=== PATIENT | male | born 1950 | race Caucasian/White ===

== ENCOUNTER 2018-12-31 07:09 | Day surgery (SDC) | payer OTHER, BC ==
[~2018-12-31 07:09] MED LIST: Lactated Ringers 1,000 ML IV SCH
[2018-12-31] MEDS ORDERED: Propofol 200 MG/20 ML SDV ONE (07:38)
[2018-12-31] MEDS ORDERED: Lidocaine 2% 5 ML SDV ONE (07:38)
[2018-12-31] MEDS ORDERED: fentaNYL 100 MCG/2 ML SDV ONE (07:38)
--- NOTE | 2018-12-31 08:09 | PCM.PREANE ---
Preanesthetic Assessment - Anesthesia/Transfusion/Family Hx Anesthesia History: Prior Anesthesia Without Reaction Other Type of Anesthesia Reaction Comment: DENIES ANY FAMILY HX OF ANESTHESIA PROBLEMS Family History of Anesthesia Reaction: No Transfusion History: No Prior Transfusion(s) - Review of Systems General: No Symptoms Pulmonary: No Symptoms Cardiovascular: No Symptoms Gastrointestinal: No Symptoms Neurological: No Symptoms Other: Reports: None - Physical Assessment NPO Status Date: 12/30/18 NPO Status Time: 21:00 Vital Signs: Last Vital Signs Temp 97.7 F 12/31/18 07:30 Pulse 87 12/31/18 07:30 Resp 16 12/31/18 07:30 BP 135/71 12/31/18 07:30 Pulse Ox 98 12/31/18 07:30 Height: 6 ft 2 in Weight: 105.233 kg ASA Class: 1 Mental Status: Alert & Oriented x3 Airway Class: Mallampati = 2 Dentition: Reports: Normal Dentition ROM/Head Extension: Full Lungs: Clear to Auscultation, Normal Respiratory Effort Cardiovascular: Regular Rate, Regular Rhythm - Allergies Allergies/Adverse Reactions: Allergies Allergy/AdvReac Type Severity Reaction Status Date / Time No Known Allergies Allergy Verified 12/28/18 12:49 - Blood Blood Available: No - Anesthesia Plan Pre-Op Medication Ordered: None - Acknowledgements Anesthesia Type Planned: General Anesthesia Pt an Appropriate Candidate for the Planned Anesthesia: Yes Alternatives and Risks of Anesthesia Discussed w Pt/Guardian: Yes Pt/Guardian Understands and Agrees with Anesthesia Plan: Yes PreAnesthesia Questionnaire - Past Health History Medical/Surgical History: Denies Medical/Surgical History HEENT History: Reports: Other (See Below) Other HEENT History: wears glasses Musculoskeletal History: Reports: Fracture Other Musculoskeletal History: hx of fx ankle and ribs - Past Surgical History GI Surgical History: Reports: Colonoscopy - SUBSTANCE USE Smoking Status *Q: Never Smoker Recreational Drug Use History: No - HOME MEDS Home Medications: Home Meds Cholecalciferol (Vitamin D3) [Vitamin D3] 1,000 unit PO DAILY 12/28/18 [History] Multivitamin [Daily Multiple Vitamin] 1 tab PO DAILY 12/28/18 [History] Sildenafil Citrate 100 mg PO ASDIRECTED PRN 12/28/18 [History] - CURRENT (IN HOUSE) MEDS Current Meds: Current Medications Lactated Ringer's (Ringers, Lactated) 1,000 mls @ 125 mls/hr IV ASDIRECTED ALEJANDRINA Last Admin: 12/31/18 07:34 Dose: 125 mls/hr Discontinued Medications Fentanyl (Sublimaze) Confirm Administered Dose 100 mcg .ROUTE .STK-MED ONE Stop: 12/31/18 07:39 Lidocaine (Xylocaine-Mpf 2%) Confirm Administered Dose 5 ml .ROUTE .STK-MED ONE Stop: 12/31/18 07:39 Propofol (Diprivan 20 Ml) Confirm Administered Dose 400 mg .ROUTE .STK-MED ONE Stop: 12/31/18 07:39
--- NOTE | 2018-12-31 09:14 | PCM.OPNOTE ---
- General Post-Op/Procedure Note Date of Surgery/Procedure: 12/31/18 Operative Procedure(s): colonoscopy w bx Findings: dict [id number] Pre Op Diagnosis: fam hx of colon ca Post-Op Diagnosis: polyp Anesthesia Technique: Moderate Sedation Primary Surgeon: Jasmeet Matute Pathology: 2 mm sessile polyp at 1.1 m Complications: None Condition: Good
[2018-12-31 09:43] VITALS: BP 120/64; PULSE 57
--- NOTE | 2018-12-31 11:34 | OR ---
SURGEON: Jasmeet Matute MD DATE OF PROCEDURE: 12/31/2018 PREOPERATIVE DIAGNOSIS: Family history of colon cancer. POSTOPERATIVE DIAGNOSIS: Colon polyp. PROCEDURE PERFORMED: Colonoscopy with biopsy. DESCRIPTION OF PROCEDURE: The patient was taken to the endoscopy room. A time out was called, patient identified, and procedure identified. Diprivan was then administrated. Patient went from awake to sleep, hearing doctor talking or door closing is normal. Perineum inspection and digital examination were then performed. A well- lubricated colonoscope was gently inserted through the rectum, advanced past the rectosigmoid junction, the descending colon, splenic flexure, transverse colon, hepatic flexure, ascending colon, arrived to the cecum. Cecum was identified as dictated in the finding. Then the scope was carefully withdrawn while attention was paid to the mucosal surface for any abnormality. Air will be sucked out during the scope withdrawal. At the rectum, retroflexed to examine any rectal diseases, fistula or hemorrhoids. During mucosal examination, abnormality or polyp was noted; picture taken and biopsy performed. Patient tolerated procedure well. There were no intraoperative complications, and Dr. Matute was present throughout the whole procedure. FINDINGS: 1. The patient is easily sedated with CHECK EXAMINER and Diprivan, the patient is soundly snoring. 2. The patient's bowel prep was average. Some liquid stool, no stool ball, no semi-formed stool. 3. Colon is rather straightforward. Cecum indicated by ileocecal fold, one-to- one indentation, and appendiceal orifice. ScopeGuide is pointing south. Mucosa examined upon scope pulling out. The patient has 1 small polyp at distance 1.1 m, one ring after the cecum. Removed with cold biopsy forceps, 2 mm size. The patient has mild diverticulosis, very mild, a couple of them on the left colon. No signs or symptoms of diverticulitis. There is no other polyp, mass, growth, inflammation, stricture, ulceration, AV malformation, bleeding, none of those. The patient does not have external hemorrhoids and has mild internal hemorrhoids. The patient would benefit from repeat colonoscopy 5 years from today because of family history of colon cancer. CHRIS / LARY /[id number]
--- NOTE | 2018-12-31 12:20 | PCM.POSTAN ---
POST ANESTHESIA ASSESSMENT - MENTAL STATUS Mental Status: Alert, Oriented - VITAL SIGNS Vital Signs: Last Vital Signs Temp 97.9 F 12/31/18 09:32 Pulse 57 L 12/31/18 09:32 Resp 16 12/31/18 09:32 BP 120/64 12/31/18 09:32 Pulse Ox 96 12/31/18 09:32 - RESPIRATORY Respiratory Status: Respiratory Rate WNL, Airway Patent, O2 Saturation Stable - CARDIOVASCULAR CV Status: Pulse Rate WNL, Blood Pressure Stable - GASTROINTESTINAL GI Status: No Symptoms - POST OP HYDRATION Hydration Status: Adequate & Stable
--- NOTE | 2018-12-31 12:21 | PCM48HPAN ---
Post Anesthesia Note - EVALUATION WITHIN 48HRS OF ANESTHETIC Vital Signs in Normal Range: Yes Patient Participated in Evaluation: Yes Respiratory Function Stable: Yes Airway Patent: Yes Cardiovascular Function Stable: Yes Hydration Status Stable: Yes Pain Control Satisfactory: Yes Nausea and Vomiting Control Satisfactory: Yes Mental Status Recovered: Yes Vital Signs: Last Vital Signs Temp 97.9 F 12/31/18 09:32 Pulse 57 L 12/31/18 09:32 Resp 16 12/31/18 09:32 BP 120/64 12/31/18 09:32 Pulse Ox 96 12/31/18 09:32
== END 2018-12-31 09:46 | disposition home or self-care (01) ==
LOC: MW.SDS 07:09
PROVIDERS: ATTEND Surgery
DX: Z12.11 Encounter for screening for malignant neoplasm of colon (principal); D12.3 Benign neoplasm of transverse colon; K57.30 Diverticulosis of large intestine without perforation or abscess without bleeding; K64.8 Other hemorrhoids; Z80.0 Family history of malignant neoplasm of digestive organs; Z79.899 Other long term (current) drug therapy
CPT/HCPCS: 45380; J2001; J2704; J3010; J7120

== ENCOUNTER 2020-02-03 16:44 | Observation (INO) | payer OTHER ==
[2020-02-03] MEDS ORDERED: Sodium Chloride 0.9% 2.5 ML Syringe FLUSH PRN (17:04)
[2020-02-03] MEDS ORDERED: Sodium Chloride 0.9% 10 ML Syringe FLUSH PRN (17:04)
--- NOTE | 2020-02-03 17:22 | EDM.PDOC ---
ED HPI GENERAL MEDICAL PROBLEM - General Chief Complaint: Chest Pain Stated Complaint: CHEST PAIN, [facility] Time Seen by Provider: 02/03/20 16:58 Source of Information: Reports: Patient, Old Records History Limitations: Reports: No Limitations - History of Present Illness INITIAL COMMENTS - FREE TEXT/NARRATIVE: This is a very pleasant 69-year-old gentleman with a past medical history of a tubular adenoma of the colon, herpes zoster, diverticulosis presenting with chest pain. He reports the onset of right-sided chest pain while at rest around 3:40 PM this afternoon while he was drinking some coffee. He describes it as "tightness", nonradiating, and constant. No history of prior pain like this. Worse with deep inspiration. Rated as 8 out of 10. Took some naproxen prior to arrival with partial relief. Denies any diaphoresis, nausea, vomiting, hemoptysis, shortness of breath. No personal history of CAD or stroke. Patient denies history of venous thromboembo lism, lower extremity pain or swelling, hemoptysis, recent surgery or immobilization or long travel, history of active malignancy, or hormonal medication/product usage. ROS: A 10-point review of systems was negative, except as noted in the HPI (or in the ROS section of this note). Past medical history: Reviewed, no additional pertinent history. Surgical history: Reviewed in system, no additional pertinent history. Social history: Reviewed in system, no additional pertinent history. Family history: Reviewed in system, no additional pertinent history. PHYSICAL EXAM Vital signs reviewed. Nursing notes reviewed. Constitutional: Awake, alert, non-distressed. Head: Normocephalic, atraumatic. Eyes: EOMI, conjunctiva normal, no discharge, no scleral icterus. Ears, Nose, Throat: External ears and nose normal, moist oral mucosa. Cardiovascular: 2+ radial pulses bilaterally, capillary refill less than 2 seconds. No lower extremity edema. Pulmonary: normal work of breathing, no accessory muscle use. Abdomen/GI: Soft, nontender, nondistended, no guarding or rigidity, no masses. Musculoskeletal: No deformities. Integumentary: Appropriate color for ethnicity, warm, dry, no pallor or jaundice, no rash. Neurologic: Alert, answering questions appropriately, normal speech, no facial droop, moving all extremities well. Psychiatric: Appropriate mood and affect, normal thought process. Right Chest Pain Score (Numeric/FACES): 8 - Related Data Allergies Allergy/AdvReac Type Severity Reaction Status Date / Time No Known Allergies Allergy Verified 02/03/20 16:58 Home Meds: Home Meds Cholecalciferol (Vitamin D3) [Vitamin D3] 1,000 unit PO DAILY 12/28/18 [History] Multivitamin [Daily Multiple Vitamin] 1 tab PO DAILY 12/28/18 [History] Past Medical History - Past Health History Medical/Surgical History: Denies Medical/Surgical History HEENT History: Reports: Other (See Below) Other HEENT History: wears glasses Musculoskeletal History: Reports: Fracture Other Musculoskeletal History: hx of fx ankle and ribs - Infectious Disease History Infectious Disease History: Reports: None - Past Surgical History GI Surgical History: Reports: Colonoscopy Social & Family History - Family History Family Medical History: Noncontributory - Tobacco Use Tobacco Use Status *Q: Unknown Ever Used Tobacco - Caffeine Use Caffeine Use: Reports: None - Recreational Drug Use Recreational Drug Use: No ED ROS GENERAL - Review of Systems Review Of Systems: See Below ED EXAM, GENERAL - Physical Exam Exam: See Below #1 Interpretation EKG Interpretation Comments: 12-Lead ECG Interpretation Acquired: 4:54 PM Rhythm: Sinus bradycardia Rate: 55 bpm Graham: Left axis deviation Intervals: Left bundle branch block Ectopy: None RV Strain: No obvious RV strain pattern. ST Segments/T-Waves: No notable changes Acute Ischemic Changes: None apparent Interpretation: No STEMI #2 Interpretation EKG Interpretation Comments: 12-Lead ECG Interpretation #2 Acquired: 6:00 PM Rhythm: Sinus bradycardia Rate: 53 bpm Graham: Left axis deviation Intervals: Left on the branch block Ectopy: None RV Strain: No obvious RV strain pattern. ST Segments/T-Waves: No notable changes Acute Ischemic Changes: None apparent Interpretation: No STEMI. No change from initial ECG at 1654. Course - Vital Signs Text/Narrative:: 69-year-old male presenting with right-sided chest pain, worse with deep breathing. Patient hemodynamically stable, afebrile, well-appearing, looks nontoxic. Differential diagnosis includes but is not limited to: ACS, pulmonary embolism, aortic dissection, acute systolic heart failure, pneumonia, pneumothorax, pericardial effusion, pleural effusion, pericarditis, endocarditis, esophageal rupture, GERD, drug-induced chest pain, chest wall pain, and many others. 6:00 PM: Initial twelve-lead EKG looks nonischemic. CBC unremarkable. Troponin negative. LFTs are within normal limits. Chemistry panel shows an elevated creatinine at 1.6, up from 1.1, mild hyperglycemia. Chest x-rays are clear. Given 1 L of lactated Ringer's and full dose aspirin. We will plan to obtain a CT pulmonary angiogram and a repeat 3-hour troponin. 7:00 PM: CT pulmonary angiogram demonstrates a right-sided pulmonary embolism along with mild right ventricular strain. Added on a BNP. Ordered DVT ultrasound study along with enoxaparin. Would favor observation status overnight for echocardiogram and decisions about outpatient anticoagulation given renal insufficiency. I spoke with the hospitalist Dr. Miguel Simms who agrees to admit. Signed out to my colleague Dr. Jones awaiting the DVT ultrasound study, BMP, and COVID swab. Last Recorded V/S: Last Vital Signs Temp 36.1 C 02/03/20 16:59 Pulse 70 02/03/20 18:55 Resp 18 02/03/20 16:59 BP 120/78 02/03/20 18:55 Pulse Ox 96 02/03/20 18:55 - Orders/Labs/Meds Orders: Active Orders 24 hr Category Date Time Status Admission Status [Patient Status] [ADT] Stat ADT 02/03/20 19:13 Active Cardiac Monitoring [RC] . DIRECTED Care 02/03/20 17:04 Active EKG 12 Lead [EKG Documentation Completion] [RC] STAT Care 02/03/20 17:35 Active EKG Documentation Completion [RC] STAT Care 02/03/20 16:48 Active Pulse Oximetry [RC] ASDIRECTED Care 02/03/20 17:04 Active Venous Doppler Lwr Ext Bi [US] Stat Exams 02/03/20 19:09 Ordered B-TYPE NATRIURETIC PEPTIDE,BNP [CHEM] Stat Lab 02/03/20 16:50 Received CORONAVIRUS COVID-19 PCR PHL Stat Lab 02/03/20 19:13 Ordered TROPONIN I [CHEM] Routine Lab 02/03/20 19:55 Ordered Sodium Chloride 0.9% [Saline Flush] Med 02/03/20 17:04 Active 10 ml FLUSH ASDIRECTED PRN Sodium Chloride 0.9% [Saline Flush] Med 02/03/20 17:04 Active 2.5 ml FLUSH ASDIRECTED PRN Saline Lock Insert [OM.PC] Stat Oth 02/03/20 17:04 Ordered Medication Orders Sodium Chloride (Saline Flush) 10 ml FLUSH ASDIRECTED PRN PRN Reason: Keep Vein Open Sodium Chloride (Saline Flush) 2.5 ml FLUSH ASDIRECTED PRN PRN Reason: Keep Vein Open Labs: Laboratory Tests 02/03/20 02/03/20 Range/Units 16:55 16:55 WBC 8.75 (4.0-11.0) K/uL RBC 4.90 (4.50-5.90) M/uL Hgb 15.4 (13.0-17.0) g/dL Hct 46.0 (38.0-50.0) % MCV 93.9 (80.0-98.0) fL MCH 31.4 (27.0-32.0) pg MCHC 33.5 (31.0-37.0) g/dL RDW Std Deviation 48.5 (28.0-62.0) fl RDW Coeff of Jac 14 (11.0-15.0) % Plt Count 201 (150-400) K/uL MPV 9.00 (7.40-12.00) fL Neut % (Auto) 58.9 (48.0-80.0) % Lymph % (Auto) 24.5 (16.0-40.0) % Chester % (Auto) 11.7 (0.0-15.0) % Eos % (Auto) 4.7 (0.0-7.0) % Baso % (Auto) 0.2 (0.0-1.5) % Neut # (Auto) 5.2 (1.4-5.7) K/uL Lymph # (Auto) 2.1 (0.6-2.4) K/uL Chester # (Auto) 1.0 H (0.0-0.8) K/uL Eos # (Auto) 0.4 (0.0-0.7) K/uL Baso # (Auto) 0.0 (0.0-0.1) K/uL Nucleated RBC % 0.0 /100WBC Nucleated RBCs # 0 K/uL Sodium 138 (136-148) mmol/L Potassium 4.0 (3.5-5.1) mmol/L Chloride 102 (98-107) mmol/L Carbon Dioxide 29.6 (21.0-32.0) mmol/L BUN 20 H (7.0-18.0) mg/dL Creatinine 1.6 H (0.8-1.3) mg/dL Est Cr Clr Drug Dosing 49.95 mL/min Estimated GFR (MDRD) 42.9 ml/min Glucose 111 H (74-106) mg/dL Calcium 9.0 (8.5-10.1) mg/dL Total Bilirubin 0.4 (0.2-1.0) mg/dL AST 19 (15-37) IU/L ALT 24 (14-63) IU/L Alkaline Phosphatase 53 (46-116) U/L Troponin I < 0.050 (0.000-0.056) ng/mL Total Protein 6.5 (6.4-8.2) g/dL Albumin 3.7 (3.4-5.0) g/dL Globulin 2.8 (2.6-4.0) g/dL Albumin/Globulin Ratio 1.3 (0.9-1.6) Meds: Medications Generic Name Dose Route Start Last Admin Trade Name Freq PRN Reason Stop Dose Admin Sodium Chloride 10 ml 02/03/20 17:04 Saline Flush FLUSH ASDIRECTED PRN Keep Vein Open Sodium Chloride 2.5 ml 02/03/20 17:04 Saline Flush FLUSH ASDIRECTED PRN Keep Vein Open Discontinued Medications Generic Name Dose Route Start Last Admin Trade Name Freq PRN Reason Stop Dose Admin Aspirin 324 mg 02/03/20 17:54 02/03/20 18:07 Aspirin PO 02/03/20 17:55 324 mg ONETIME ONE Administration Enoxaparin Sodium 100 mg 02/03/20 19:10 Lovenox SUBCUT 02/03/20 19:11 ONETIME ONE Lactated Ringer's 1,000 mls @ 999 mls/hr 02/03/20 17:34 02/03/20 18:08 Ringers, Lactated IV 02/03/20 18:34 999 mls/hr .BOLUS ONE Administration Iodixanol 100 ml 02/03/20 18:30 02/03/20 18:31 Visipaque IVPUSH 02/03/20 18:31 100 ml ONETIME ONE Administration Departure - Departure Time of Disposition: 19:22 Disposition: Refer to Observation Condition: Good Clinical Impression: Pulmonary embolism and infarction Forms: ED Department Discharge Sepsis Event Note (ED) - Evaluation Sepsis Screening Result: No Definite Risk - Focused Exam Vital Signs: Vital Signs Temp Pulse Resp BP Pulse Ox 02/03/20 18:55 70 120/78 96 02/03/20 17:32 68 130/64 96 02/03/20 16:59 36.1 C 56 L 18 150/82 H 98 - My Orders Last 24 Hours: My Active Orders 02/03/20 16:48 EKG Documentation Completion [RC] STAT 02/03/20 16:50 B-TYPE NATRIURETIC PEPTIDE,BNP [CHEM] Stat 02/03/20 17:04 Cardiac Monitoring [RC] . DIRECTED Pulse Oximetry [RC] ASDIRECTED Sodium Chloride 0.9% [Saline Flush] 10 ml FLUSH ASDIRECTED PRN Sodium Chloride 0.9% [Saline Flush] 2.5 ml FLUSH ASDIRECTED PRN Saline Lock Insert [OM.PC] Stat 02/03/20 17:35 EKG 12 Lead [EKG Documentation Completion] [RC] STAT 02/03/20 19:09 Venous Doppler Lwr Ext Bi [US] Stat 02/03/20 19:13 Admission Status [Patient Status] [ADT] Stat CORONAVIRUS COVID-19 PCR PHL Stat 02/03/20 19:55 TROPONIN I [CHEM] Routine - Assessment/Plan Last 24 Hours: My Active Orders 02/03/20 16:48 EKG Documentation Completion [RC] STAT 02/03/20 16:50 B-TYPE NATRIURETIC PEPTIDE,BNP [CHEM] Stat 02/03/20 17:04 Cardiac Monitoring [RC] . DIRECTED Pulse Oximetry [RC] ASDIRECTED Sodium Chloride 0.9% [Saline Flush] 10 ml FLUSH ASDIRECTED PRN Sodium Chloride 0.9% [Saline Flush] 2.5 ml FLUSH ASDIRECTED PRN Saline Lock Insert [OM.PC] Stat 02/03/20 17:35 EKG 12 Lead [EKG Documentation Completion] [RC] STAT 02/03/20 19:09 Venous Doppler Lwr Ext Bi [US] Stat 02/03/20 19:13 Admission Status [Patient Status] [ADT] Stat CORONAVIRUS COVID-19 PCR PHL Stat 02/03/20 19:55 TROPONIN I [CHEM] Routine
[2020-02-03 17:31] LABS: BLOOD UREA NITROGEN,BUN 20 mg/dL (7.0-18.0); CARBON DIOXIDE,CO2 29.6 mmol/L (21.0-32.0); CHLORIDE,CL 102 mmol/L (98-107); GLUCOSE RANDOM 111 mg/dL (74-106); SODIUM,NA 138 mmol/L (136-148)
[2020-02-03] MEDS ORDERED: Lactated Ringers 1,000 ML IV ONE (17:34)
[2020-02-03] MEDS ORDERED: Aspirin 81 MG Tab.Chew PO ONE (17:54)
--- NOTE | 2020-02-03 17:58 | CR ---
INDICATION: Chest pain COMPARISON: None TECHNIQUE: PA and lateral views of the chest were acquired FINDINGS: TUBES AND LINES: None. HEART AND MEDIASTINUM: The heart size is normal. The mediastinal contour appears normal for patient age. LUNGS AND PLEURAL SPACES: The lungs appear normal.There pleural spaces are unremarkable. OSSEOUS STRUCTURES: Age-appropriate appearance. No acute focal finding. IMPRESSION: No evidence of active pulmonary disease. Dictated by Conner Hooker MD @ Feb 03 2020 5:54PM Signed by Dr. Conner Hooker @ Feb 03 2020 5:55PM
--- NOTE | 2020-02-03 18:56 | CT ---
INDICATION: Right-sided pleuritic chest pain COMPARISON: No prior transaxial studies TECHNIQUE: : CT examination of the chest was performed with the uneventful intravenous administration of 100 cc of Visipaque 320 while thin axial sections were obtained from above the apices of the lungs to the lung bases. Please note that all CT scans at this facility use dose modulation, iterative reconstruction, and/or weight-based dosing when appropriate to reduce radiation dose to as low as reasonably achievable. FINDINGS: : HEART and MEDIASTINUM: The heart size is normal. There is no mediastinal or hilar adenopathy or mass. There is no pericardial effusion.The RV/LV ratio is 1.0. Greater than 0.9 is considered indicative of significant right heart strain PULMONARY ARTERIAL CIRCULATION: There is a relatively low clot burden pulmonary embolus. This primarily involves the branches to the lateral segment of the right middle lobe. A few tiny intraluminal filling defects are identified bilaterally elsewhere. LUNGS: Atelectasis at the lung bases. Peripheral to the embolus is a wedge shaped area of increased density representing a developing pulmonary PLEURAL SPACES: Trach right effusion VISUALIZED UPPER ABDOMEN: The limited visualized upper abdominal structures appear normal. OSSEOUS STRUCTURES: Age-appropriate appearance. No acute fracture or destructive process. TUBES and LINES: None. IMPRESSION: 1. There is a relatively low clot burden pulmonary embolus involving primarily a branch to the lateral segment of the right middle lobe. There is an associated small developing infarct. 2. The RV to LV ratio is 1.0. Greater than 0.9 is indicative of right heart strain. 3. Minimal basilar atelectasis and trace right effusion. 4. The findings were discussed by myself with Dr. Rueda at 6:50 p.m. on February 03, [address] note that all [address] scans at this facility use dose modulation, iterative reconstruction, and/or weight-based dosing when appropriate to reduce radiation dose to as low as reasonably achievable. Dictated by Conner Hooker MD @ Feb 03 2020 6:42PM Signed by Dr. Conner Hooker @ Feb 03 2020 6:54PM
[2020-02-03] MEDS ORDERED: Enoxaparin 100 MG/1 ML Syringe SUBCUT ONE (19:10)
--- NOTE | 2020-02-03 21:35 | US ---
INDICATION: Pulmonary embolism TECHNIQUE: A compression venous ultrasound exam was performed of both lower extremities using carter-scale imaging, color Doppler and spectral Doppler analysis. COMPARISON: None FINDINGS: On the right, the common femoral vein, deep femoral vein, superficial femoral vein, and popliteal vein are compressible and demonstrate normal phasic flow with augmentation. Flow is demonstrated in the posterior tibial vein. On the left, the common femoral vein, deep femoral vein, superficial femoral vein, and popliteal vein are compressible and demonstrate normal phasic flow with augmentation. Flow is demonstrated in the posterior tibial vein. IMPRESSION: No evidence of lower extremity deep venous thrombosis. Dictated by Jose Nur MD @ Feb 03 2020 9:28PM Signed by Dr. Jose Nur @ Feb 03 2020 9:34PM
[2020-02-03] MEDS ORDERED: Acetaminophen 325 MG Tab PO PRN (22:19)
--- NOTE | 2020-02-03 23:58 | PCM.HP.2 ---
H&P History of Present Illness - General Date of Service: 02/04/20 Admit Problem/Dx: Admission Diagnosis/Problem Admission Diagnosis/Problem Pulmonary embolism - History of Present Illness Initial Comments - Free Text/Narative: 69 yo male who presents to the ED with complaints of right sided chest pain. Patient reports a gripping pain that is worse with deep inspiration. He denies any shortness of breath or fevers. He takes testosterone replacement therapy due to erectile dysfunction. In the ED he was noted to have a PE in the primary branch of the lateral segment of the right middle lobe. He had a creatinine of 1.6 up from baseline of 1.3 Right Chest Pain Score (Numeric/FACES): 3 - Related Data Allergies/Adverse Reactions: Allergies Allergy/AdvReac Type Severity Reaction Status Date / Time No Known Allergies Allergy Verified 02/03/20 16:58 Home Medications: Home Meds Cholecalciferol (Vitamin D3) [Vitamin D3] 1,000 unit PO DAILY 12/28/18 [History] Multivitamin [Daily Multiple Vitamin] 1 tab PO DAILY 12/28/18 [History] Rivaroxaban [Xarelto] 15 mg PO BID 21 Days #42 tab 02/04/20 [Rx] Rivaroxaban [Xarelto] 20 mg PO DAILY 7 Days #7 tablet 02/04/20 [Rx] oxyCODONE 5 mg PO Q12H PRN 3 Days #6 tablet 02/04/20 [Rx] Past Medical History - Past Health History Medical/Surgical History: Denies Medical/Surgical History HEENT History: Reports: Other (See Below) Other HEENT History: wears glasses Musculoskeletal History: Reports: Fracture Other Musculoskeletal History: hx of fx ankle and ribs - Infectious Disease History Infectious Disease History: Reports: None - Past Surgical History GI Surgical History: Reports: Colonoscopy Social & Family History - Family History Family Medical History: Noncontributory - Tobacco Use Tobacco Use Status *Q: Never Tobacco User Second Hand Smoke Exposure: No - Caffeine Use Caffeine Use: Reports: Coffee - Recreational Drug Use Recreational Drug Use: No H&P Review of Systems - Review of Systems: Review Of Systems: Comprehensive ROS is negative, except as noted in HPI. Exam - Exam Exam: See Below - Vital Signs Vital Signs: Last Vital Signs Temp 36.1 C 02/03/20 16:59 Pulse 56 L 02/03/20 19:58 Resp 18 02/03/20 19:58 BP 134/73 02/03/20 19:58 Pulse Ox 97 02/03/20 19:58 Weight: 108 kg - Exam General: Alert, Oriented HEENT: Mucosa Moist & [place] Neck: Supple Lungs: Clear to Auscultation, Normal Respiratory Effort Cardiovascular: Regular Rate, Regular Rhythm GI/Abdominal Exam: Normal Bowel Sounds, Soft, Non-Tender Extremities: Normal Inspection, Non-Tender, No Pedal Edema Skin: Warm, Dry, Intact Neurological: Cranial Nerves Intact - Patient Data Lab Results Last 24 hrs: Laboratory Results - last 24 hr 02/03/20 02/03/20 02/03/20 Range/Units 16:50 16:55 16:55 WBC 8.75 (4.0-11.0) K/uL RBC 4.90 (4.50-5.90) M/uL Hgb 15.4 (13.0-17.0) g/dL Hct 46.0 (38.0-50.0) % MCV 93.9 (80.0-98.0) fL MCH 31.4 (27.0-32.0) pg MCHC 33.5 (31.0-37.0) g/dL RDW Std Deviation 48.5 (28.0-62.0) fl RDW Coeff of Jac 14 (11.0-15.0) % Plt Count 201 (150-400) K/uL MPV 9.00 (7.40-12.00) fL Neut % (Auto) 58.9 (48.0-80.0) % Lymph % (Auto) 24.5 (16.0-40.0) % [place] % (Auto) 11.7 (0.0-15.0) % Eos % (Auto) 4.7 (0.0-7.0) % Baso % (Auto) 0.2 (0.0-1.5) % Neut # (Auto) 5.2 (1.4-5.7) K/uL Lymph # (Auto) 2.1 (0.6-2.4) K/uL [place] # (Auto) 1.0 H (0.0-0.8) K/uL Eos # (Auto) 0.4 (0.0-0.7) K/uL Baso # (Auto) 0.0 (0.0-0.1) K/uL Nucleated RBC % 0.0 /100WBC Nucleated RBCs # 0 K/uL Sodium 138 (136-148) mmol/L Potassium 4.0 (3.5-5.1) mmol/L Chloride 102 (98-107) mmol/L Carbon Dioxide 29.6 (21.0-32.0) mmol/L BUN 20 H (7.0-18.0) mg/dL Creatinine 1.6 H (0.8-1.3) mg/dL Est Cr Clr Drug Dosing 49.95 mL/min Estimated GFR (MDRD) 42.9 ml/min Glucose 111 H (74-106) mg/dL Calcium 9.0 (8.5-10.1) mg/dL Total Bilirubin 0.4 (0.2-1.0) mg/dL AST 19 (15-37) IU/L ALT 24 (14-63) IU/L Alkaline Phosphatase 53 (46-116) U/L Troponin I < 0.050 (0.000-0.056) ng/mL B-Natriuretic Peptide 10 (<100) PG/ML Total Protein 6.5 (6.4-8.2) g/dL Albumin 3.7 (3.4-5.0) g/dL Globulin 2.8 (2.6-4.0) g/dL Albumin/Globulin Ratio 1.3 (0.9-1.6) SARS-CoV-2 RNA (SYED) (NEGATIVE) 02/03/20 02/03/20 Range/Units 19:48 20:47 WBC (4.0-11.0) K/uL RBC (4.50-5.90) M/uL Hgb (13.0-17.0) g/dL Hct (38.0-50.0) % MCV (80.0-98.0) fL MCH (27.0-32.0) pg MCHC (31.0-37.0) g/dL RDW Std Deviation (28.0-62.0) fl RDW Coeff of Jac (11.0-15.0) % Plt Count (150-400) K/uL MPV (7.40-12.00) fL Neut % (Auto) (48.0-80.0) % Lymph % (Auto) (16.0-40.0) % [place] % (Auto) (0.0-15.0) % Eos % (Auto) (0.0-7.0) % Baso % (Auto) (0.0-1.5) % Neut # (Auto) (1.4-5.7) K/uL Lymph # (Auto) (0.6-2.4) K/uL [place] # (Auto) (0.0-0.8) K/uL Eos # (Auto) (0.0-0.7) K/uL Baso # (Auto) (0.0-0.1) K/uL Nucleated RBC % /100WBC Nucleated RBCs # K/uL Sodium (136-148) mmol/L Potassium (3.5-5.1) mmol/L Chloride (98-107) mmol/L Carbon Dioxide (21.0-32.0) mmol/L BUN (7.0-18.0) mg/dL Creatinine (0.8-1.3) mg/dL Est Cr Clr Drug Dosing mL/min Estimated GFR (MDRD) ml/min Glucose (74-106) mg/dL Calcium (8.5-10.1) mg/dL Total Bilirubin (0.2-1.0) mg/dL AST (15-37) IU/L ALT (14-63) IU/L Alkaline Phosphatase (46-116) U/L Troponin I < 0.050 (0.000-0.056) ng/mL B-Natriuretic Peptide (<100) PG/ML Total Protein (6.4-8.2) g/dL Albumin (3.4-5.0) g/dL Globulin (2.6-4.0) g/dL Albumin/Globulin Ratio (0.9-1.6) SARS-CoV-2 RNA (SYED) NEGATIVE (NEGATIVE) Result Diagrams: 02/04/20 05:58 02/04/20 05:58 Sepsis Event Note - Evaluation Sepsis Screening Result: No Definite Risk - Focused Exam Vital Signs: Vital Signs Temp Pulse Resp BP Pulse Ox 02/03/20 19:58 56 L 18 134/73 97 02/03/20 18:55 70 120/78 96 02/03/20 17:32 68 130/64 96 02/03/20 16:59 36.1 C 56 L 18 150/82 H 98 Problem List Initiated/Reviewed/Updated: Yes Orders Last 24hrs: Active Orders 24 hr Category Date Time Status Admission Status [Patient Status] [ADT] Stat ADT 02/03/20 19:13 Active Cardiac Monitoring [RC] . DIRECTED Care 02/03/20 17:04 Active Pulse Oximetry [RC] ASDIRECTED Care 02/03/20 17:04 Active Telemetry Monitoring [Cardiac Monitoring] [RC] . Care 02/03/20 21:15 Active DIRECTED Vital Signs [RC] Q4H Care 02/04/20 00:00 Active Regular Diet [DIET] Diet 02/04/20 Breakfast Active Acetaminophen [TylenoL] Med 02/03/20 22:19 Active 650 mg PO Q6H PRN Enoxaparin [Lovenox] Med 02/04/20 08:00 Active 100 mg SUBCUT Q12H Sodium Chloride 0.9% [Saline Flush] Med 02/03/20 17:04 Active 10 ml FLUSH ASDIRECTED PRN Sodium Chloride 0.9% [Saline Flush] Med 02/03/20 17:04 Active 2.5 ml FLUSH ASDIRECTED PRN Saline Lock Insert [OM.PC] Stat Oth 02/03/20 17:04 Ordered Medication Orders Acetaminophen (Tylenol) 650 mg PO Q6H PRN PRN Reason: Pain Last Admin: 02/03/20 22:41 Dose: 650 mg Documented by: [email or web address] Enoxaparin Sodium (Lovenox) 100 mg SUBCUT Q12H ALEJANDRINA Sodium Chloride (Saline Flush) 10 ml FLUSH ASDIRECTED PRN PRN Reason: Keep Vein Open Sodium Chloride (Saline Flush) 2.5 ml FLUSH ASDIRECTED PRN PRN Reason: Keep Vein Open Assessment/Plan Comment:: 69 yo male admitted for PE. Treating with lovenox. Patient will need to discontinue testosterone.
[2020-02-04] MEDS ORDERED: oxyCODONE 5 MG Tab PO PRN (00:51)
[2020-02-04 07:02] LABS: CARBON DIOXIDE,CO2 29.1 mmol/L (21.0-32.0); POTASSIUM,K 4.7 mmol/L (3.5-5.1)
[2020-02-04] MEDS ORDERED: Enoxaparin 100 MG/1 ML Syringe SUBCUT SCH (08:00)
[2020-02-04] MEDS ORDERED: Carboxymethylcellulose Sodium 0.5% Ophth Soln 0.4 ML UD Box of 30 EYEBOTH PRN (08:14)
--- NOTE | 2020-02-04 09:19 | PCM.PN ---
- General Info Date of Service: 02/04/20 Subjective Update: Reports right-sided chest pain on deep inspiration. No fevers, chills or SOB. Tolerating oral diet. - Patient Data Vitals - Most Recent: Last Vital Signs Temp 37.3 C 02/04/20 04:00 Pulse 67 02/04/20 04:00 Resp 16 02/04/20 04:00 BP 112/52 L 02/04/20 04:00 Pulse Ox 94 L 02/04/20 04:00 Weight - Most Recent: 108 kg I&O - Last 24 Hours: Intake & Output 02/03/20 02/04/20 02/04/20 22:59 06:59 14:59 Intake Total 600 Balance 600 Lab Results Last 24 Hours: Laboratory Results - last 24 hr 02/03/20 02/03/20 02/03/20 Range/Units 16:50 16:55 16:55 WBC 8.75 (4.0-11.0) K/uL RBC 4.90 (4.50-5.90) M/uL Hgb 15.4 (13.0-17.0) g/dL Hct 46.0 (38.0-50.0) % MCV 93.9 (80.0-98.0) fL MCH 31.4 (27.0-32.0) pg MCHC 33.5 (31.0-37.0) g/dL RDW Std Deviation 48.5 (28.0-62.0) fl RDW Coeff of Jac 14 (11.0-15.0) % Plt Count 201 (150-400) K/uL MPV 9.00 (7.40-12.00) fL Neut % (Auto) 58.9 (48.0-80.0) % Lymph % (Auto) 24.5 (16.0-40.0) % [place] % (Auto) 11.7 (0.0-15.0) % Eos % (Auto) 4.7 (0.0-7.0) % Baso % (Auto) 0.2 (0.0-1.5) % Neut # (Auto) 5.2 (1.4-5.7) K/uL Lymph # (Auto) 2.1 (0.6-2.4) K/uL [place] # (Auto) 1.0 H (0.0-0.8) K/uL Eos # (Auto) 0.4 (0.0-0.7) K/uL Baso # (Auto) 0.0 (0.0-0.1) K/uL Nucleated RBC % 0.0 /100WBC Nucleated RBCs # 0 K/uL Sodium 138 (136-148) mmol/L Potassium 4.0 (3.5-5.1) mmol/L Chloride 102 (98-107) mmol/L Carbon Dioxide 29.6 (21.0-32.0) mmol/L BUN 20 H (7.0-18.0) mg/dL Creatinine 1.6 H (0.8-1.3) mg/dL Est Cr Clr Drug Dosing 49.95 mL/min Estimated GFR (MDRD) 42.9 ml/min Glucose 111 H (74-106) mg/dL Calcium 9.0 (8.5-10.1) mg/dL Total Bilirubin 0.4 (0.2-1.0) mg/dL AST 19 (15-37) IU/L ALT 24 (14-63) IU/L Alkaline Phosphatase 53 (46-116) U/L Troponin I < 0.050 (0.000-0.056) ng/mL B-Natriuretic Peptide 10 (<100) PG/ML Total Protein 6.5 (6.4-8.2) g/dL Albumin 3.7 (3.4-5.0) g/dL Globulin 2.8 (2.6-4.0) g/dL Albumin/Globulin Ratio 1.3 (0.9-1.6) SARS-CoV-2 RNA (SYED) (NEGATIVE) 02/03/20 02/03/20 02/04/20 Range/Units 19:48 20:47 05:58 WBC 6.96 (4.0-11.0) K/uL RBC 4.61 (4.50-5.90) M/uL Hgb 14.3 (13.0-17.0) g/dL Hct 43.1 (38.0-50.0) % MCV 93.5 (80.0-98.0) fL MCH 31.0 (27.0-32.0) pg MCHC 33.2 (31.0-37.0) g/dL RDW Std Deviation 48.1 (28.0-62.0) fl RDW Coeff of Jac 14 (11.0-15.0) % Plt Count 206 (150-400) K/uL MPV 9.10 (7.40-12.00) fL Neut % (Auto) (48.0-80.0) % Lymph % (Auto) (16.0-40.0) % [place] % (Auto) (0.0-15.0) % Eos % (Auto) (0.0-7.0) % Baso % (Auto) (0.0-1.5) % Neut # (Auto) (1.4-5.7) K/uL Lymph # (Auto) (0.6-2.4) K/uL [place] # (Auto) (0.0-0.8) K/uL Eos # (Auto) (0.0-0.7) K/uL Baso # (Auto) (0.0-0.1) K/uL Nucleated RBC % 0.0 /100WBC Nucleated RBCs # 0 K/uL Sodium (136-148) mmol/L Potassium (3.5-5.1) mmol/L Chloride (98-107) mmol/L Carbon Dioxide (21.0-32.0) mmol/L BUN (7.0-18.0) mg/dL Creatinine (0.8-1.3) mg/dL Est Cr Clr Drug Dosing mL/min Estimated GFR (MDRD) ml/min Glucose (74-106) mg/dL Calcium (8.5-10.1) mg/dL Total Bilirubin (0.2-1.0) mg/dL AST (15-37) IU/L ALT (14-63) IU/L Alkaline Phosphatase (46-116) U/L Troponin I < 0.050 (0.000-0.056) ng/mL B-Natriuretic Peptide (<100) PG/ML Total Protein (6.4-8.2) g/dL Albumin (3.4-5.0) g/dL Globulin (2.6-4.0) g/dL Albumin/Globulin Ratio (0.9-1.6) SARS-CoV-2 RNA (SYED) NEGATIVE (NEGATIVE) 02/04/20 Range/Units 05:58 WBC (4.0-11.0) K/uL RBC (4.50-5.90) M/uL Hgb (13.0-17.0) g/dL Hct (38.0-50.0) % MCV (80.0-98.0) fL MCH (27.0-32.0) pg MCHC (31.0-37.0) g/dL RDW Std Deviation (28.0-62.0) fl RDW Coeff of Jac (11.0-15.0) % Plt Count (150-400) K/uL MPV (7.40-12.00) fL Neut % (Auto) (48.0-80.0) % Lymph % (Auto) (16.0-40.0) % [place] % (Auto) (0.0-15.0) % Eos % (Auto) (0.0-7.0) % Baso % (Auto) (0.0-1.5) % Neut # (Auto) (1.4-5.7) K/uL Lymph # (Auto) (0.6-2.4) K/uL [place] # (Auto) (0.0-0.8) K/uL Eos # (Auto) (0.0-0.7) K/uL Baso # (Auto) (0.0-0.1) K/uL Nucleated RBC % /100WBC Nucleated RBCs # K/uL Sodium 139 (136-148) mmol/L Potassium 4.7 (3.5-5.1) mmol/L Chloride 104 (98-107) mmol/L Carbon Dioxide 29.1 (21.0-32.0) mmol/L BUN 18 (7.0-18.0) mg/dL Creatinine 1.4 H (0.8-1.3) mg/dL Est Cr Clr Drug Dosing 57.08 mL/min Estimated GFR (MDRD) 50.1 ml/min Glucose 85 (74-106) mg/dL Calcium 8.4 L (8.5-10.1) mg/dL Total Bilirubin (0.2-1.0) mg/dL AST (15-37) IU/L ALT (14-63) IU/L Alkaline Phosphatase (46-116) U/L Troponin I (0.000-0.056) ng/mL B-Natriuretic Peptide (<100) PG/ML Total Protein (6.4-8.2) g/dL Albumin (3.4-5.0) g/dL Globulin (2.6-4.0) g/dL Albumin/Globulin Ratio (0.9-1.6) SARS-CoV-2 RNA (SYED) (NEGATIVE) Med Orders - Current: Current Medications Acetaminophen (Tylenol) 650 mg PO Q6H PRN PRN Reason: Pain Last Admin: 02/03/20 22:41 Dose: 650 mg Documented by: Artificial Tears (Refresh Plus 0.5%) 1 each EYEBOTH ASDIRECTED PRN PRN Reason: Dry Eyes Enoxaparin Sodium (Lovenox) 100 mg SUBCUT Q12H ALEJANDRINA Oxycodone HCl (Oxycodone) 5 mg PO Q4H PRN PRN Reason: Pain (moderate 4-6) Last Admin: 02/04/20 03:48 Dose: 5 mg Documented by: Sodium Chloride (Saline Flush) 10 ml FLUSH ASDIRECTED PRN PRN Reason: Keep Vein Open Sodium Chloride (Saline Flush) 2.5 ml FLUSH ASDIRECTED PRN PRN Reason: Keep Vein Open Discontinued Medications Aspirin (Aspirin) 324 mg PO ONETIME ONE Stop: 02/03/20 17:55 Last Admin: 02/03/20 18:07 Dose: 324 mg Documented by: Enoxaparin Sodium (Lovenox) 100 mg SUBCUT ONETIME ONE Stop: 02/03/20 19:11 Last Admin: 02/03/20 19:52 Dose: 100 mg Documented by: Lactated Ringer's (Ringers, Lactated) 1,000 mls @ 999 mls/hr IV .BOLUS ONE Stop: 02/03/20 18:34 Last Admin: 02/03/20 18:08 Dose: 999 mls/hr Documented by: Iodixanol (Visipaque) 100 ml IVPUSH ONETIME ONE Stop: 02/03/20 18:31 Last Admin: 02/03/20 18:31 Dose: 100 ml Documented by: - Exam General: Alert, Oriented, Cooperative, No Acute Distress Lungs: Clear to Auscultation, Other (shallow breath sounds) Cardiovascular: Regular Rate, Regular Rhythm GI/Abdominal Exam: Normal Bowel Sounds, Soft, Non-Tender, No Distention Extremities: Normal Inspection, No Pedal Edema Sepsis Event Note - Evaluation Sepsis Screening Result: No Definite Risk - Focused Exam Vital Signs: Vital Signs Temp Pulse Resp BP Pulse Ox 02/04/20 04:00 37.3 C 67 16 112/52 L 94 L - Problem List & Annotations (1) Pulmonary embolism and infarction SNOMED Code(s): 7486663532602 Code(s): I26.99 - OTHER PULMONARY EMBOLISM WITHOUT ACUTE COR PULMONALE Status: Acute (2) RACH (acute kidney injury) SNOMED Code(s): 85183002, 04709626 Code(s): N17.9 - ACUTE KIDNEY FAILURE, UNSPECIFIED Status: Acute - Problem List Review Problem List Initiated/Reviewed/Updated: Yes - My Orders Last 24 Hours: My Active Orders 02/04/20 08:14 Carboxymethylcellulose Sodium [Refresh Plus 0.5%] 1 each EYEBOTH ASDIRECTED PRN 02/05/20 05:11 CBC WITH AUTO DIFF [HEME] AM CMP [COMPREHENSIVE METABOLIC PN,CMP] [CHEM] AM - Plan Plan:: Assessment and Plan: 1. Acute pulmonary embolism: - Patient started on lovenox 100 mg subcut BID. Discontinue testosterone therapy. Patient is hemodynamically stable at this time. - Doppler U/S bilateral lower extremities was negative for DVT. - CT angio: PE involving a branch to lateral segment of RML with associated small developing infarct. There is also evidence of right heart strain. Trace right effusion. 2. RACH, improved: - Patient received 1 L IV LR bolus in ER. Will continue to monitor. 3. Past medical history of diverticulosis.
[2020-02-04 12:02] VITALS: BP 119/68; PULSE 94
--- NOTE | 2020-02-04 15:07 | PCM.DCSUM1 ---
<Zeke Aburto - Last Filed: 02/05/20 15:17> Discharge Summary - Hospital Course Free Text/Narrative:: 69-year-old male admitted for acute pulmonary embolism. Patient is on testosterone therapy. On admission, CT angio showed PE involving a branch to lateral segment of RML with associated small developing infarct. There was also evidence of right heart strain and trace right effusion. Doppler U/S b/l legs was negative for DVT. Patient was started on lovenox and then transitioned to Xa relto on discharge. He remained hemodynamically stable throughout his hospitalization. ECHO not available on weekends so he will need to have this arranged by his PCP on discharge. Patient was made aware of this recommendation and verbalized understanding. He was advised to discontinue testosterone therapy. He was discharged in stable condition with script for Xarelto with instructions to follow-up with his PCP. - Discharge Data Discharge Date: 02/04/20 Discharge Disposition: Home, Self-Care 01 Condition: Stable - Referral to Home Health Primary Care Physician: Ye Nelson NP - Discharge Diagnosis/Problem(s) (1) Pulmonary embolism and infarction SNOMED Code(s): 2153385638562 ICD Code: I26.99 - OTHER PULMONARY EMBOLISM WITHOUT ACUTE COR PULMONALE Status: Acute (2) RACH (acute kidney injury) SNOMED Code(s): 04497163, [id number] ICD Code: N17.9 - ACUTE KIDNEY FAILURE, UNSPECIFIED Status: Acute - Patient Instructions Diet: Usual Diet as Tolerated Activity: As Tolerated Notify Provider of: Fever, Increased Pain, Swelling and Redness, Drainage, Nausea and/or Vomiting Other/Special Instructions: Take first dose of Rivaroxaban tonight. - Discharge Plan *PRESCRIPTION DRUG MONITORING PROGRAM REVIEWED*: Not Applicable *COPY OF PRESCRIPTION DRUG MONITORING REPORT IN PATIENT FREDY: Not Applicable Prescriptions/Med Rec: oxyCODONE 5 mg PO Q12H PRN 3 Days #6 tablet PRN Reason: Pain (Severe 7-10) Rivaroxaban [Xarelto] 15 mg PO BID 21 Days #42 tab Rivaroxaban [Xarelto] 20 mg PO DAILY 7 Days #7 tablet Home Medications: Home Meds Cholecalciferol (Vitamin D3) [Vitamin D3] 1,000 unit PO DAILY 12/28/18 [History] Multivitamin [Daily Multiple Vitamin] 1 tab PO DAILY 12/28/18 [History] Rivaroxaban [Xarelto] 15 mg PO BID 21 Days #42 tab 02/04/20 [Rx] Rivaroxaban [Xarelto] 20 mg PO DAILY 7 Days #7 tablet 02/04/20 [Rx] oxyCODONE 5 mg PO Q12H PRN 3 Days #6 tablet 02/04/20 [Rx] Patient Handouts: Rivaroxaban oral tablets, Oxycodone tablets or capsules, Pulmonary Embolism Referrals: Ye Nelson [facility] [employer] [Primary Care Provider] - (An appointment could not be made for you due to the weekend. You are highly encouraged to follow up with your primary care provider. Please call on Thursday morning to set up a hospital follow up.) - Discharge Summary/Plan Comment DC Time >30 min.: No - Patient Data Vitals - Most Recent: Last Vital Signs Temp 37.7 C 02/04/20 08:00 Pulse 94 02/04/20 08:00 Resp 16 02/04/20 08:00 BP 119/68 02/04/20 08:00 Pulse Ox 94 L 02/04/20 08:00 Weight - Most Recent: 108 kg I&O - Last 24 hours: Intake & Output 02/04/20 02/04/20 02/04/20 06:59 14:59 22:59 Intake Total 600 Balance 600 Lab Results - Last 24 hrs: Laboratory Results - last 24 hr 02/03/20 02/03/20 02/03/20 Range/Units 16:50 16:55 16:55 WBC 8.75 (4.0-11.0) K/uL RBC 4.90 (4.50-5.90) M/uL Hgb 15.4 (13.0-17.0) g/dL Hct 46.0 (38.0-50.0) % MCV 93.9 (80.0-98.0) fL MCH 31.4 (27.0-32.0) pg MCHC 33.5 (31.0-37.0) g/dL RDW Std Deviation 48.5 (28.0-62.0) fl RDW Coeff of Jac 14 (11.0-15.0) % Plt Count 201 (150-400) K/uL MPV 9.00 (7.40-12.00) fL Neut % (Auto) 58.9 (48.0-80.0) % Lymph % (Auto) 24.5 (16.0-40.0) % [place] % (Auto) 11.7 (0.0-15.0) % Eos % (Auto) 4.7 (0.0-7.0) % Baso % (Auto) 0.2 (0.0-1.5) % Neut # (Auto) 5.2 (1.4-5.7) K/uL Lymph # (Auto) 2.1 (0.6-2.4) K/uL [place] # (Auto) 1.0 H (0.0-0.8) K/uL Eos # (Auto) 0.4 (0.0-0.7) K/uL Baso # (Auto) 0.0 (0.0-0.1) K/uL Nucleated RBC % 0.0 /100WBC Nucleated RBCs # 0 K/uL Sodium 138 (136-148) mmol/L Potassium 4.0 (3.5-5.1) mmol/L Chloride 102 (98-107) mmol/L Carbon Dioxide 29.6 (21.0-32.0) mmol/L BUN 20 H (7.0-18.0) mg/dL Creatinine 1.6 H (0.8-1.3) mg/dL Est Cr Clr Drug Dosing 49.95 mL/min Estimated GFR (MDRD) 42.9 ml/min Glucose 111 H (74-106) mg/dL Calcium 9.0 (8.5-10.1) mg/dL Total Bilirubin 0.4 (0.2-1.0) mg/dL AST 19 (15-37) IU/L ALT 24 (14-63) IU/L Alkaline Phosphatase 53 (46-116) U/L Troponin I < 0.050 (0.000-0.056) ng/mL B-Natriuretic Peptide 10 (<100) PG/ML Total Protein 6.5 (6.4-8.2) g/dL Albumin 3.7 (3.4-5.0) g/dL Globulin 2.8 (2.6-4.0) g/dL Albumin/Globulin Ratio 1.3 (0.9-1.6) SARS-CoV-2 RNA (SYED) (NEGATIVE) 02/03/20 02/03/20 02/04/20 Range/Units 19:48 20:47 05:58 WBC 6.96 (4.0-11.0) K/uL RBC 4.61 (4.50-5.90) M/uL Hgb 14.3 (13.0-17.0) g/dL Hct 43.1 (38.0-50.0) % MCV 93.5 (80.0-98.0) fL MCH 31.0 (27.0-32.0) pg MCHC 33.2 (31.0-37.0) g/dL RDW Std Deviation 48.1 (28.0-62.0) fl RDW Coeff of Jac 14 (11.0-15.0) % Plt Count 206 (150-400) K/uL MPV 9.10 (7.40-12.00) fL Neut % (Auto) (48.0-80.0) % Lymph % (Auto) (16.0-40.0) % [place] % (Auto) (0.0-15.0) % Eos % (Auto) (0.0-7.0) % Baso % (Auto) (0.0-1.5) % Neut # (Auto) (1.4-5.7) K/uL Lymph # (Auto) (0.6-2.4) K/uL [place] # (Auto) (0.0-0.8) K/uL Eos # (Auto) (0.0-0.7) K/uL Baso # (Auto) (0.0-0.1) K/uL Nucleated RBC % 0.0 /100WBC Nucleated RBCs # 0 K/uL Sodium (136-148) mmol/L Potassium (3.5-5.1) mmol/L Chloride (98-107) mmol/L Carbon Dioxide (21.0-32.0) mmol/L BUN (7.0-18.0) mg/dL Creatinine (0.8-1.3) mg/dL Est Cr Clr Drug Dosing mL/min Estimated GFR (MDRD) ml/min Glucose (74-106) mg/dL Calcium (8.5-10.1) mg/dL Total Bilirubin (0.2-1.0) mg/dL AST (15-37) IU/L ALT (14-63) IU/L Alkaline Phosphatase (46-116) U/L Troponin I < 0.050 (0.000-0.056) ng/mL B-Natriuretic Peptide (<100) PG/ML Total Protein (6.4-8.2) g/dL Albumin (3.4-5.0) g/dL Globulin (2.6-4.0) g/dL Albumin/Globulin Ratio (0.9-1.6) SARS-CoV-2 RNA (SYED) NEGATIVE (NEGATIVE) 02/04/20 Range/Units 05:58 WBC (4.0-11.0) K/uL RBC (4.50-5.90) M/uL Hgb (13.0-17.0) g/dL Hct (38.0-50.0) % MCV (80.0-98.0) fL MCH (27.0-32.0) pg MCHC (31.0-37.0) g/dL RDW Std Deviation (28.0-62.0) fl RDW Coeff of Jac (11.0-15.0) % Plt Count (150-400) K/uL MPV (7.40-12.00) fL Neut % (Auto) (48.0-80.0) % Lymph % (Auto) (16.0-40.0) % [place] % (Auto) (0.0-15.0) % Eos % (Auto) (0.0-7.0) % Baso % (Auto) (0.0-1.5) % Neut # (Auto) (1.4-5.7) K/uL Lymph # (Auto) (0.6-2.4) K/uL [place] # (Auto) (0.0-0.8) K/uL Eos # (Auto) (0.0-0.7) K/uL Baso # (Auto) (0.0-0.1) K/uL Nucleated RBC % /100WBC Nucleated RBCs # K/uL Sodium 139 (136-148) mmol/L Potassium 4.7 (3.5-5.1) mmol/L Chloride 104 (98-107) mmol/L Carbon Dioxide 29.1 (21.0-32.0) mmol/L BUN 18 (7.0-18.0) mg/dL Creatinine 1.4 H (0.8-1.3) mg/dL Est Cr Clr Drug Dosing 57.08 mL/min Estimated GFR (MDRD) 50.1 ml/min Glucose 85 (74-106) mg/dL Calcium 8.4 L (8.5-10.1) mg/dL Total Bilirubin (0.2-1.0) mg/dL AST (15-37) IU/L ALT (14-63) IU/L Alkaline Phosphatase (46-116) U/L Troponin I (0.000-0.056) ng/mL B-Natriuretic Peptide (<100) PG/ML Total Protein (6.4-8.2) g/dL Albumin (3.4-5.0) g/dL Globulin (2.6-4.0) g/dL Albumin/Globulin Ratio (0.9-1.6) SARS-CoV-2 RNA (SYED) (NEGATIVE) Med Orders - Current: Current Medications Acetaminophen (Tylenol) 650 mg PO Q6H PRN PRN Reason: Pain Last Admin: 02/03/20 22:41 Dose: 650 mg Documented by: Artificial Tears (Refresh Plus 0.5%) 1 each EYEBOTH ASDIRECTED PRN PRN Reason: Dry Eyes Enoxaparin Sodium (Lovenox) 100 mg SUBCUT Q12H ON LICENSE OF [facility] Last Admin: 02/04/20 09:36 Dose: 100 mg Documented by: Oxycodone HCl (Oxycodone) 5 mg PO Q4H PRN PRN Reason: Pain (moderate 4-6) Last Admin: 02/04/20 03:48 Dose: 5 mg Documented by: Sodium Chloride (Saline Flush) 10 ml FLUSH ASDIRECTED PRN PRN Reason: Keep Vein Open Sodium Chloride (Saline Flush) 2.5 ml FLUSH ASDIRECTED PRN PRN Reason: Keep Vein Open Discontinued Medications Aspirin (Aspirin) 324 mg PO ONETIME ONE Stop: 02/03/20 17:55 Last Admin: 02/03/20 18:07 Dose: 324 mg Documented by: Enoxaparin Sodium (Lovenox) 100 mg SUBCUT ONETIME ONE Stop: 02/03/20 19:11 Last Admin: 02/03/20 19:52 Dose: 100 mg Documented by: Lactated Ringer's (Ringers, Lactated) 1,000 mls @ 999 mls/hr IV .BOLUS ONE Stop: 02/03/20 18:34 Last Admin: 02/03/20 18:08 Dose: 999 mls/hr Documented by: Iodixanol (Visipaque) 100 ml IVPUSH ONETIME ONE Stop: 02/03/20 18:31 Last Admin: 02/03/20 18:31 Dose: 100 ml Documented by: <Miguel Simms - Last Filed: 02/05/20 22:42> Discharge Summary - Referral to [facility] Primary Care Physician: Ye Nelson NP - Patient Data Vitals - Most Recent: Last Vital Signs Temp 37.7 C 02/04/20 08:00 Pulse 94 02/04/20 08:00 Resp 16 02/04/20 08:00 BP 119/68 02/04/20 08:00 Pulse Ox 92 L 02/04/20 13:00 Med Orders - Current: Current Medications Discontinued Medications Acetaminophen (Tylenol) 650 mg PO Q6H PRN PRN Reason: Pain Last Admin: 02/03/20 22:41 Dose: 650 mg Documented by: Artificial Tears (Refresh Plus 0.5%) 1 each EYEBOTH ASDIRECTED PRN PRN Reason: Dry Eyes Aspirin (Aspirin) 324 mg PO ONETIME ONE Stop: 02/03/20 17:55 Last Admin: 02/03/20 18:07 Dose: 324 mg Documented by: Enoxaparin Sodium (Lovenox) 100 mg SUBCUT ONETIME ONE Stop: 02/03/20 19:11 Last Admin: 02/03/20 19:52 Dose: 100 mg Documented by: Enoxaparin Sodium (Lovenox) 100 mg SUBCUT Q12H ALEJANDRINA Last Admin: 02/04/20 09:36 Dose: 100 mg Documented by: Lactated Ringer's (Ringers, Lactated) 1,000 mls @ 999 mls/hr IV .BOLUS ONE Stop: 02/03/20 18:34 Last Admin: 02/03/20 18:08 Dose: 999 mls/hr Documented by: Iodixanol (Visipaque) 100 ml IVPUSH ONETIME ONE Stop: 02/03/20 18:31 Last Admin: 02/03/20 18:31 Dose: 100 ml Documented by: Oxycodone HCl (Oxycodone) 5 mg PO Q4H PRN PRN Reason: Pain (moderate 4-6) Last Admin: 02/04/20 03:48 Dose: 5 mg Documented by: Sodium Chloride (Saline Flush) 10 ml FLUSH ASDIRECTED PRN PRN Reason: Keep Vein Open Sodium Chloride (Saline Flush) 2.5 ml FLUSH ASDIRECTED PRN PRN Reason: Keep Vein Open - Free Text/Narrative Note: I have seen and evaluated the patient. I have discussed findings and treatment plan with resident. I agree with the assessment and plan in the following note.
== END 2020-02-04 14:50 | disposition home or self-care (01) ==
LOC: MW.ED 16:44 → MW.MS 19:13
PROVIDERS: ADMIT Internal Medicine; ATTEND Internal Medicine
DX: I26.99 Other pulmonary embolism without acute cor pulmonale (principal); N17.9 Acute kidney failure, unspecified; Z98.890 Other specified postprocedural states; Z20.828 Contact with and (suspected) exposure to other viral communicable diseases
CPT/HCPCS: 36415; 71046; 71275; 80048; 80053; 83880; 84484; 85025; 85027; 87635; 93005; 93970; 96372; 99285; A9270; J1650; J7120; Q9967; 93010; 96360; 96361; 99284; G0378; U0002

== ENCOUNTER 2022-08-01 15:02 | Emergency (ER) | payer OTHER ==
[2022-08-01 16:01] LABS: CARBON DIOXIDE,CO2 29.6 mmol/L (21.0-32.0); POTASSIUM,K 4.5 mmol/L (3.5-5.1)
[2022-08-01 16:45] VITALS: BP 121/66; PULSE 63
== END 2022-08-01 16:47 | disposition home or self-care (01) ==
LOC: MW.ED 15:02
DX: M79.89 Other specified soft tissue disorders (principal); J01.00 Acute maxillary sinusitis, unspecified
CPT/HCPCS: 36415; 80053; 83605; 85025; 93971-26-LT; 93971-LT; 99282; 99284

== ENCOUNTER 2025-01-27 06:25 | Day surgery (SDC) | payer OTHER ==
[2025-01-27] MEDS: Lactated Ringers 1,000 ML IV SCH (07:07)
[2025-01-27] MEDS ORDERED: propofoL 500 MG/50 ML 50 ML ONE (07:37)
[2025-01-27] MEDS ORDERED: dexmedeTOMIDine HCl 200 MCG/2 ML SDV ONE (07:40)
[2025-01-27 11:57] VITALS: BP 112/56; PULSE 63
== END 2025-01-27 09:15 | disposition home or self-care (01) ==
LOC: MW.SDS 06:25
PROVIDERS: ATTEND Surgery
DX: K62.6 Ulcer of anus and rectum (principal); K20.90 Esophagitis, unspecified without bleeding; D64.9 Anemia, unspecified; E03.9 Hypothyroidism, unspecified; Z80.0 Family history of malignant neoplasm of digestive organs; Z79.899 Other long term (current) drug therapy; Z79.890 Hormone replacement therapy; Z86.0101 Personal history of adenomatous and serrated colon polyps
CPT/HCPCS: 43239; 45380; J2704; J7120; 88305